=== PATIENT | male | born 1945 | race Caucasian/White ===

== ENCOUNTER 2017-11-12 00:57 | Inpatient (IN) | payer MEDICARE, OTHER ==
[2017-11-12] MEDS: VECURONIUM 100 MG in DEXTROSE 5% 100 ML IV ×3 (01:08→21:28)
[2017-11-12] MEDS: SODIUM CHLORIDE 0.9% 500 ML BAG IV* (01:08)
[2017-11-12 01:19] LABS: ADD MAN DIFF? NO
[2017-11-12 01:22] LABS: WHITE BLOOD COUNT 7.7 10^3/ul (4.8-10.8)
[2017-11-12 01:22] LABS: BASOPHIL # 0.1 10^3/ul (0.0-0.1); BASOPHILS % 0.7 % (0.0-2.0); EOSINOPHILS # 0.3 10^3/ul (0.0-0.5); HEMATOCRIT 33.4 % (42.0-52.0); HEMOGLOBIN 10.6 g/dl (14.0-18.0); LYMPHOCYTES # 2.6 10^3/ul (0.8-2.9); LYMPHOCYTES % 34.3 % (15.0-51.0); MEAN CORPUSCULAR HEMOGLOBIN 34.8 pg (29.0-33.0); MEAN CORPUSCULAR HGB CONC 31.7 g/dl (32.0-37.0); MEAN CORPUSCULAR VOLUME 109.5 fl (82.0-101.0); MEAN PLATELET VOLUME 10.9 fl (7.4-10.4); MONOCYTE # 0.3 10^3/ul (0.3-0.9); MONOCYTES % 3.4 % (0.0-11.0); NEUTROPHIL # 4.2 10^3/ul (1.6-7.5); PLATELET COUNT 196 10^3/UL (140-415); RED BLOOD COUNT 3.05 10^6/ul (4.70-6.10); RED CELL DISTRIBUTION WIDTH 14.2 % (11.5-14.5)
[2017-11-12 01:31] LABS: ADD UMIC YES; UR ASCORBIC ACID NEGATIVE (NEGATIVE); UR BILIRUBIN (Dip) NEGATIVE (NEGATIVE); UR BLOOD (Dip) NEGATIVE (NEGATIVE); UR CLARITY CLOUDY (CLEAR); UR COLOR YELLOW (YELLOW); UR GLUCOSE (Dip) 3+ mg/dL (NEGATIVE); UR KETONES (Dip) NEGATIVE (NEGATIVE); UR LEUKOCYTE ESTERASE (Dip) NEGATIVE Leu/ul (NEGATIVE); UR NITRITE (Dip) NEGATIVE (NEGATIVE); UR RBC 5 /HPF (0-5); UR SPECIFIC GRAVITY (Dip) 1.012 (1.003-1.030); UR TOTAL PROTEIN (Dip) 3+ mg/dl (NEGATIVE); UR UROBILINOGEN (Dip) NEGATIVE (NEGATIVE); UR WBC 7 /HPF (0-5)
[2017-11-12 01:41] LABS: INR 1.18; PROTIME 15.2 Sec (11.9-14.9); PT RATIO 1.2
[2017-11-12] MEDS ORDERED: HEPARIN 1000 UNITS/ML 10 ML INJ (01:41)
[2017-11-12] MEDS ORDERED: IOHEXOL 350MG/ML 50 ML BTL (01:41)
[2017-11-12] MEDS ORDERED: IODIXANOL LOCM 100 ML BTL (01:41)
[2017-11-12] MEDS ORDERED: NITROGLYCERIN (IC) 100 MCG/ML INJ (01:41)
[2017-11-12] MEDS ORDERED: LIDOCAINE 1% (MDV) 20 ML INJ (01:41)
[2017-11-12] MEDS ORDERED: VERAPAMIL 5 MG INJ (01:41)
[2017-11-12 01:42] LABS: AADO2 Arterial 108.3 mmHg (7.0-24.0); Allen Test ACCEPTAB; Arterial Base Excess -11.2 mmol/L (-3.0-3); Arterial Blood Gas Oxygen Sat 99.4 mmHG (95.0-100.0); Arterial COHb 0 % (0.0-3.0); Arterial Fraction of Oxyhgb 99.2 % (93.0-99.0); Arterial HCO3 15.8 mmol/L (22.0-26.0); Arterial MetHb 0.2 % (0.0-1.5); Arterial Total Hemglobin 11.9 g/dl (12.0-18.0); Arterial pCO2 39.7 mmhg (35-45); MODE VENT - AC; PARTIAL THROMBOPLASTIN TIME 32.6 Sec (25.0-35.0); Site Left Radial
[2017-11-12 01:57] LABS: ALANINE AMINOTRANSFERASE 38 IU/L (13-69); ALBUMIN 3.7 g/dl (3.3-4.9); ALKALINE PHOSPHATASE 98 IU/L (42-121); ANION GAP 30 (8-16); ASPARTATE AMINO TRANSFERASE 41 IU/L (15-46); CARBON DIOXIDE 20 mmol/L (21-31); CHLORIDE 97 mmol/L (97-110); GLUCOSE 260 mg/dl (70-220); MAGNESIUM 2.9 mg/dl (1.7-2.5); PHOSPHORUS 12.5 mg/dl (2.5-4.9)
[2017-11-12 01:58] LABS: BLOOD UREA NITROGEN 75 mg/dl (7-20); CALCIUM 7.4 mg/dl (8.4-10.2); CREATININE 6.66 mg/dl (0.61-1.24); SODIUM 142 mmol/L (135-144)
[2017-11-12] MEDS ORDERED: ALBUTEROL HFA 8 GM INHALER INH (02:00)
[2017-11-12] MEDS ORDERED: IPRATROPIUM (HFA) 12.9 GM INHALER INH (02:00)
[2017-11-12 02:07] LABS: HEMOGLOBIN A1C 7.9 % (0-5.9)
[2017-11-12 03:33] LABS: THYROID STIMULATING HORMONE 0.226 MIU/L (0.465-4.680)
[2017-11-12 03:54] LABS: ADD MAN DIFF? NO
[2017-11-12 03:59] LABS: AADO2 Arterial 239.4 mmHg (7.0-24.0); Allen Test ACCEPTAB; Arterial Base Excess -6.6 mmol/L (-3.0-3); Arterial Blood Gas Oxygen Sat 99.3 mmHG (95.0-100.0); Arterial COHb 0.3 % (0.0-3.0); Arterial Fraction of Oxyhgb 98.8 % (93.0-99.0); Arterial HCO3 20.8 mmol/L (22.0-26.0); Arterial MetHb 0.2 % (0.0-1.5); Arterial Total Hemglobin 12.1 g/dl (12.0-18.0); Arterial pCO2 45.1 mmhg (35-45); MODE VENT - AC; Site Left Radial; Temperature 34.8 C
[2017-11-12 04:00] LABS: BASOPHIL # 0.1 10^3/ul (0.0-0.1); BASOPHILS % 0.4 % (0.0-2.0); EOSINOPHILS # 0.2 10^3/ul (0.0-0.5); EOSINOPHILS % 1.7 % (0.0-7.0); HEMATOCRIT 33.7 % (42.0-52.0); LYMPHOCYTES # 1.2 10^3/ul (0.8-2.9); MEAN CORPUSCULAR HEMOGLOBIN 34.2 pg (29.0-33.0); MEAN CORPUSCULAR HGB CONC 32.6 g/dl (32.0-37.0); MEAN CORPUSCULAR VOLUME 104.7 fl (82.0-101.0); MEAN PLATELET VOLUME 10.8 fl (7.4-10.4); MONOCYTE # 0.3 10^3/ul (0.3-0.9); MONOCYTES % 2.3 % (0.0-11.0); NEUTROPHIL # 10.2 10^3/ul (1.6-7.5); PLATELET COUNT 217 10^3/UL (140-415); RED BLOOD COUNT 3.22 10^6/ul (4.70-6.10); RED CELL DISTRIBUTION WIDTH 14.3 % (11.5-14.5)
[2017-11-12 04:00] LABS: WHITE BLOOD COUNT 12.2 10^3/ul (4.8-10.8)
[2017-11-12] MEDS ORDERED: DEXTROSE 50% 50 ML SYRINGE IV ×2 (04:00)
[2017-11-12] MEDS: ACCU-CHEK XX ×20 (04:00→23:50)
[2017-11-12] MEDS: PROPOFOL 100 ML IV ×3 (04:07→17:32)
[2017-11-12 04:16] LABS: ALANINE AMINOTRANSFERASE 50 IU/L (13-69); ALBUMIN 3.7 g/dl (3.3-4.9); ALBUMIN/GLOBULIN RATIO 1.42; ALKALINE PHOSPHATASE 99 IU/L (42-121); ANION GAP 23 (8-16); ASPARTATE AMINO TRANSFERASE 73 IU/L (15-46); BLOOD UREA NITROGEN 79 mg/dl (7-20); CALCIUM 6.9 mg/dl (8.4-10.2); CARBON DIOXIDE 25 mmol/L (21-31); CHLORIDE 99 mmol/L (97-110); CHOL/HDL RATIO 1.7 RATIO; CHOLESTEROL 131 mg/dl (100-200); GLUCOSE 118 mg/dl (70-220); HDL CHOLESTEROL 76 mg/dl (31-75); LDL CHOLESTEROL,CALCULATED 35 mg/dl; MAGNESIUM 2.4 mg/dl (1.7-2.5); PHOSPHORUS 11.3 mg/dl (2.5-4.9); POTASSIUM 5.4 mmol/L (3.5-5.1); SODIUM 142 mmol/L (135-144); TOTAL PROTEIN 6.3 g/dl (6.1-8.1); TRIGLYCERIDES 99 mg/dl (0-149)
[2017-11-12 04:19] LABS: LACTIC ACID 1.7 mmol/L (0.5-2.0)
[2017-11-12] MEDS: SOD CHLORIDE 0.9% 1,000 ML IV (04:19)
[2017-11-12 04:20] LABS: AMYLASE 133 U/L (11-123)
[2017-11-12 04:20] LABS: CREATINE KINASE 450 IU/L (23-200); LIPASE 143 U/L (23-300)
[2017-11-12 04:27] LABS: CK INDEX 4.4
[2017-11-12 04:28] LABS: INR 1.23; PARTIAL THROMBOPLASTIN TIME 29.7 Sec (25.0-35.0); PROTIME 15.7 Sec (11.9-14.9); PT RATIO 1.2
[2017-11-12] MEDS: INSULIN HUMAN REGULAR 100 UNIT in SOD CHLORIDE 0.9% 99 ML IV (05:16)
[2017-11-12 05:33] LABS: THYROID STIMULATING HORMONE 0.267 MIU/L (0.465-4.680)
[2017-11-12 05:49] LABS: D-DIMER > 10000.00 ng/ml (<460)
[2017-11-12] MEDS: PANTOPRAZOLE 40 MG INJ IV (06:08)
[2017-11-12] MEDS: CALCIUM GLUCONATE 10% 1 GM in DEXTROSE 5% 100 ML IVPB (08:00)
[2017-11-12 09:27] LABS: ADD MAN DIFF? NO
[2017-11-12 09:29] LABS: WHITE BLOOD COUNT 8.2 10^3/ul (4.8-10.8)
[2017-11-12 09:29] LABS: BASOPHILS % 0.2 % (0.0-2.0); EOSINOPHILS % 0.4 % (0.0-7.0); HEMOGLOBIN 11.5 g/dl (14.0-18.0); LYMPHOCYTES # 0.6 10^3/ul (0.8-2.9); LYMPHOCYTES % 7.7 % (15.0-51.0); MEAN CORPUSCULAR HEMOGLOBIN 33.9 pg (29.0-33.0); MEAN CORPUSCULAR HGB CONC 32.9 g/dl (32.0-37.0); MEAN CORPUSCULAR VOLUME 103.2 fl (82.0-101.0); MEAN PLATELET VOLUME 10.6 fl (7.4-10.4); MONOCYTE # 0.2 10^3/ul (0.3-0.9); MONOCYTES % 2.9 % (0.0-11.0); NEUTROPHIL # 7.2 10^3/ul (1.6-7.5); NEUTROPHILS % 88.3 % (39.0-77.0); PLATELET COUNT 160 10^3/UL (140-415); RED BLOOD COUNT 3.39 10^6/ul (4.70-6.10); RED CELL DISTRIBUTION WIDTH 14.4 % (11.5-14.5)
[2017-11-12 09:51] LABS: ALANINE AMINOTRANSFERASE 51 IU/L (13-69); ALBUMIN 3.7 g/dl (3.3-4.9); ALBUMIN/GLOBULIN RATIO 1.48; ALKALINE PHOSPHATASE 100 IU/L (42-121); ANION GAP 26 (8-16); ASPARTATE AMINO TRANSFERASE 94 IU/L (15-46); BLOOD UREA NITROGEN 85 mg/dl (7-20); CALCIUM 6.9 mg/dl (8.4-10.2); CARBON DIOXIDE 21 mmol/L (21-31); CHLORIDE 100 mmol/L (97-110); GLUCOSE 142 mg/dl (70-220); POTASSIUM 5.6 mmol/L (3.5-5.1); SODIUM 141 mmol/L (135-144); TOTAL PROTEIN 6.2 g/dl (6.1-8.1)
[2017-11-12 09:52] LABS: MAGNESIUM 2.6 mg/dl (1.7-2.5)
[2017-11-12 10:10] LABS: AMYLASE 146 U/L (11-123)
[2017-11-12 10:10] LABS: CK INDEX 5.9; CREATINE KINASE 781 IU/L (23-200); LIPASE 99 U/L (23-300)
[2017-11-12 10:32] LABS: AADO2 Arterial 167.5 mmHg (7.0-24.0); Arterial Base Excess -6.8 mmol/L (-3.0-3); Arterial Blood Gas Oxygen Sat 98.8 mmHG (95.0-100.0); Arterial COHb 0.4 % (0.0-3.0); Arterial Fraction of Oxyhgb 98.3 % (93.0-99.0); Arterial HCO3 17.6 mmol/L (22.0-26.0); Arterial MetHb 0.1 % (0.0-1.5); Arterial Total Hemglobin 12.8 g/dl (12.0-18.0); Arterial pCO2 27.5 mmhg (35-45); MODE VENT - AC; Site Left Radial; Temperature 33.5 C
[2017-11-12 11:00] LABS: D-DIMER > 10000.00 ng/ml (<460)
[2017-11-12] MEDS ORDERED: MEPERIDINE 25 MG INJ IV ×2 (11:00)
[2017-11-12] MEDS: OCULAR LUBRICANT 3.5 GM OPH OINT BOTH EYES ×2 (13:18→17:14)
[2017-11-12] MEDS: ARTIFICIAL TEARS 15 ML OPH BOTH EYES ×2 (13:18→17:14)
[2017-11-12 13:44] LABS: ADD UMIC YES; UR ASCORBIC ACID NEGATIVE (NEGATIVE); UR BACTERIA FEW /HPF (NONE SEEN); UR BILIRUBIN (Dip) NEGATIVE (NEGATIVE); UR BLOOD (Dip) 3+ mg/dL (NEGATIVE); UR CLARITY CLOUDY (CLEAR); UR COLOR YELLOW (YELLOW); UR GLUCOSE (Dip) 1+ mg/dL (NEGATIVE); UR KETONES (Dip) TRACE mg/dL (NEGATIVE); UR LEUKOCYTE ESTERASE (Dip) 1+ Leu/ul (NEGATIVE); UR NITRITE (Dip) NEGATIVE (NEGATIVE); UR RBC 89 /HPF (0-5); UR SPECIFIC GRAVITY (Dip) 1.026 (1.003-1.030); UR SQUAMOUS EPITHELIAL CELL FEW /HPF (FEW); UR TOTAL PROTEIN (Dip) 3+ mg/dl (NEGATIVE); UR UROBILINOGEN (Dip) NEGATIVE (NEGATIVE); UR WBC 34 /HPF (0-5)
[2017-11-12] MEDS ORDERED: PENDING SANTYL ORDER FOR WOUND CARE XX (14:00)
[2017-11-12 16:19] LABS: ADD MAN DIFF? NO
[2017-11-12 16:25] LABS: WHITE BLOOD COUNT 6.6 10^3/ul (4.8-10.8)
[2017-11-12 16:25] LABS: ABNORMAL IP MESSAGE 1; BASOPHILS % 0.2 % (0.0-2.0); EOSINOPHILS % 0.3 % (0.0-7.0); HEMATOCRIT 36.2 % (42.0-52.0); HEMOGLOBIN 12.1 g/dl (14.0-18.0); LYMPHOCYTES # 0.4 10^3/ul (0.8-2.9); LYMPHOCYTES % 6.3 % (15.0-51.0); MEAN CORPUSCULAR HEMOGLOBIN 34.1 pg (29.0-33.0); MEAN CORPUSCULAR HGB CONC 33.4 g/dl (32.0-37.0); MEAN PLATELET VOLUME 11.1 fl (7.4-10.4); MONOCYTE # 0.4 10^3/ul (0.3-0.9); NEUTROPHIL # 5.7 10^3/ul (1.6-7.5); NEUTROPHILS % 86.7 % (39.0-77.0); PLATELET COUNT 157 10^3/UL (140-415); POSITIVE DIFF @See below; RED BLOOD COUNT 3.55 10^6/ul (4.70-6.10); RED CELL DISTRIBUTION WIDTH 14.2 % (11.5-14.5)
[2017-11-12 16:44] LABS: MAGNESIUM 2.5 mg/dl (1.7-2.5)
[2017-11-12 16:49] LABS: INR 1.13; PROTIME 14.7 Sec (11.9-14.9); PT RATIO 1.1
[2017-11-12 16:50] LABS: PARTIAL THROMBOPLASTIN TIME 31.1 Sec (25.0-35.0)
[2017-11-12 16:55] LABS: ALANINE AMINOTRANSFERASE 54 IU/L (13-69); ALBUMIN 3.5 g/dl (3.3-4.9); ALBUMIN/GLOBULIN RATIO 1.45; ALKALINE PHOSPHATASE 99 IU/L (42-121); ANION GAP 24 (8-16); ASPARTATE AMINO TRANSFERASE 88 IU/L (15-46); BLOOD UREA NITROGEN 87 mg/dl (7-20); CALCIUM 7.2 mg/dl (8.4-10.2); CARBON DIOXIDE 22 mmol/L (21-31); CHLORIDE 99 mmol/L (97-110); CREATININE 6.65 mg/dl (0.61-1.24); GLUCOSE 95 mg/dl (70-220); PHOSPHORUS 8.1 mg/dl (2.5-4.9); POTASSIUM 4.9 mmol/L (3.5-5.1); SODIUM 140 mmol/L (135-144); TOTAL PROTEIN 5.9 g/dl (6.1-8.1)
[2017-11-12 17:00] LABS: CREATINE KINASE 853 IU/L (23-200); LIPASE 65 U/L (23-300)
[2017-11-12 17:00] LABS: AMYLASE 130 U/L (11-123)
[2017-11-12 17:01] LABS: LACTIC ACID 1.2 mmol/L (0.5-2.0)
[2017-11-12] MEDS ORDERED: PROPOFOL 100 ML (17:07)
[2017-11-12] MEDS: MIDAZOLAM (DRIP) 50 mg/50 mL 50 ML IV (17:15)
[2017-11-12 17:18] LABS: D-DIMER 9557.71 ng/ml (<460)
[2017-11-12] MEDS: DEXTROSE 5%-0.9% NACL 1,000 ML IV (18:32)
[2017-11-12 20:02] LABS: AADO2 Arterial 185.1 mmHg (7.0-24.0); Allen Test ACCEPTAB; Arterial Base Excess 3.7 mmol/L (-3.0-3); Arterial COHb 0.6 % (0.0-3.0); Arterial Fraction of Oxyhgb 89.3 % (93.0-99.0); Arterial HCO3 31.1 mmol/L (22.0-26.0); Arterial MetHb 0.2 % (0.0-1.5); Arterial pCO2 48.9 mmhg (35-45); MODE VENT - AC; Site Left Radial
[2017-11-12 21:54] LABS: ADD MAN DIFF? NO
[2017-11-12 21:57] LABS: WHITE BLOOD COUNT 6.1 10^3/ul (4.8-10.8)
[2017-11-12 21:57] LABS: ABNORMAL IP MESSAGE 1; BASOPHILS % 0.3 % (0.0-2.0); EOSINOPHILS % 0.3 % (0.0-7.0); HEMATOCRIT 36.1 % (42.0-52.0); LYMPHOCYTES # 0.5 10^3/ul (0.8-2.9); LYMPHOCYTES % 7.3 % (15.0-51.0); MEAN CORPUSCULAR HEMOGLOBIN 33.4 pg (29.0-33.0); MEAN CORPUSCULAR HGB CONC 33.2 g/dl (32.0-37.0); MEAN CORPUSCULAR VOLUME 100.6 fl (82.0-101.0); MONOCYTE # 0.3 10^3/ul (0.3-0.9); MONOCYTES % 5.1 % (0.0-11.0); NEUTROPHIL # 5.3 10^3/ul (1.6-7.5); NEUTROPHILS % 86.7 % (39.0-77.0); PLATELET COUNT 148 10^3/UL (140-415); POSITIVE DIFF @See below; RED BLOOD COUNT 3.59 10^6/ul (4.70-6.10); RED CELL DISTRIBUTION WIDTH 14.2 % (11.5-14.5)
[2017-11-12 22:02] LABS: AADO2 Arterial 146.6 mmHg (7.0-24.0); Arterial Base Excess -3.7 mmol/L (-3.0-3); Arterial Blood Gas Oxygen Sat 98.8 mmHG (95.0-100.0); Arterial COHb 0.2 % (0.0-3.0); Arterial Fraction of Oxyhgb 98.3 % (93.0-99.0); Arterial HCO3 20.2 mmol/L (22.0-26.0); Arterial MetHb 0.3 % (0.0-1.5); Arterial Total Hemglobin 12.9 g/dl (12.0-18.0); Arterial pCO2 27.7 mmhg (35-45); MODE VENT - AC; Site LB
[2017-11-12 22:13] LABS: MAGNESIUM 2.5 mg/dl (1.7-2.5)
[2017-11-12 22:14] LABS: AMYLASE 95 U/L (11-123)
[2017-11-12 22:14] LABS: LIPASE 51 U/L (23-300)
[2017-11-12 22:15] LABS: PHOSPHORUS 8.2 mg/dl (2.5-4.9)
[2017-11-12 22:15] LABS: ALANINE AMINOTRANSFERASE 50 IU/L (13-69); ALBUMIN 3.3 g/dl (3.3-4.9); ALBUMIN/GLOBULIN RATIO 1.32; ALKALINE PHOSPHATASE 95 IU/L (42-121); ANION GAP 22 (8-16); ASPARTATE AMINO TRANSFERASE 79 IU/L (15-46); BLOOD UREA NITROGEN 89 mg/dl (7-20); CALCIUM 7.2 mg/dl (8.4-10.2); CARBON DIOXIDE 20 mmol/L (21-31); CHLORIDE 100 mmol/L (97-110); CREATININE 6.62 mg/dl (0.61-1.24); GLUCOSE 128 mg/dl (70-220); MAGNESIUM 2.5 mg/dl (1.7-2.5); POTASSIUM 4.3 mmol/L (3.5-5.1); SODIUM 138 mmol/L (135-144); TOTAL PROTEIN 5.8 g/dl (6.1-8.1)
[2017-11-12 22:17] LABS: INR 1.17; PROTIME 15.1 Sec (11.9-14.9); PT RATIO 1.2
[2017-11-12 22:18] LABS: PARTIAL THROMBOPLASTIN TIME 29.7 Sec (25.0-35.0)
[2017-11-13] MEDS: OCULAR LUBRICANT 3.5 GM OPH OINT BOTH EYES ×5 (00:42→23:17)
[2017-11-13] MEDS: ACCU-CHEK XX ×25 (00:42→23:43)
[2017-11-13] MEDS: ARTIFICIAL TEARS 15 ML OPH BOTH EYES ×5 (00:42→23:17)
[2017-11-13] MEDS: CALCIUM GLUCONATE 10% 1 GM in DEXTROSE 5% 100 ML IVPB (01:31)
[2017-11-13 01:51] LABS: INR 1.12; PROTIME 14.6 Sec (11.9-14.9); PT RATIO 1.1
[2017-11-13 01:52] LABS: PARTIAL THROMBOPLASTIN TIME 30.6 Sec (25.0-35.0)
[2017-11-13] MEDS: CEFTRIAXONE 1 GM/50 ML (PMX) 50 ML IVPB (01:54)
[2017-11-13 04:30] LABS: AADO2 Arterial 149.4 mmHg (7.0-24.0); Arterial Base Excess -5.3 mmol/L (-3.0-3); Arterial Blood Gas Oxygen Sat 97.9 mmHG (95.0-100.0); Arterial COHb 0.2 % (0.0-3.0); Arterial Fraction of Oxyhgb 97.4 % (93.0-99.0); Arterial HCO3 18.4 mmol/L (22.0-26.0); Arterial MetHb 0.3 % (0.0-1.5); Arterial Total Hemglobin 13.4 g/dl (12.0-18.0); Arterial pCO2 25.7 mmhg (35-45); MODE VENT - AC; Site LB; Temperature 33.1 C
[2017-11-13 04:50] LABS: ADD MAN DIFF? NO
[2017-11-13 04:53] LABS: WHITE BLOOD COUNT 6.3 10^3/ul (4.8-10.8)
[2017-11-13 04:53] LABS: ABNORMAL IP MESSAGE 1; BASOPHILS % 0.2 % (0.0-2.0); EOSINOPHILS % 0.2 % (0.0-7.0); HEMATOCRIT 36.1 % (42.0-52.0); HEMOGLOBIN 12.2 g/dl (14.0-18.0); LYMPHOCYTES # 0.5 10^3/ul (0.8-2.9); LYMPHOCYTES % 8.4 % (15.0-51.0); MEAN CORPUSCULAR HEMOGLOBIN 33.7 pg (29.0-33.0); MEAN CORPUSCULAR HGB CONC 33.8 g/dl (32.0-37.0); MEAN CORPUSCULAR VOLUME 99.7 fl (82.0-101.0); MEAN PLATELET VOLUME 11.7 fl (7.4-10.4); MONOCYTE # 0.3 10^3/ul (0.3-0.9); MONOCYTES % 4.6 % (0.0-11.0); NEUTROPHIL # 5.4 10^3/ul (1.6-7.5); NEUTROPHILS % 86.3 % (39.0-77.0); PLATELET COUNT 153 10^3/UL (140-415); POSITIVE DIFF @See below; RED BLOOD COUNT 3.62 10^6/ul (4.70-6.10); RED CELL DISTRIBUTION WIDTH 14.5 % (11.5-14.5)
[2017-11-13 05:19] LABS: LACTIC ACID 1.5 mmol/L (0.5-2.0)
[2017-11-13 05:20] LABS: AMYLASE 94 U/L (11-123)
[2017-11-13 05:20] LABS: INR 1.13; LIPASE 37 U/L (23-300); PROTIME 14.7 Sec (11.9-14.9); PT RATIO 1.1
[2017-11-13 05:21] LABS: PARTIAL THROMBOPLASTIN TIME 31.5 Sec (25.0-35.0)
[2017-11-13] MEDS: MIDAZOLAM (DRIP) 50 mg/50 mL 50 ML IV ×2 (05:27→16:39)
[2017-11-13] MEDS: PANTOPRAZOLE 40 MG INJ IV (05:27)
[2017-11-13 05:29] LABS: ALANINE AMINOTRANSFERASE 57 IU/L (13-69); ALKALINE PHOSPHATASE 85 IU/L (42-121); ANION GAP 22 (8-16); ASPARTATE AMINO TRANSFERASE 75 IU/L (15-46); BLOOD UREA NITROGEN 93 mg/dl (7-20); CALCIUM 7.9 mg/dl (8.4-10.2); CARBON DIOXIDE 23 mmol/L (21-31); CHLORIDE 101 mmol/L (97-110); CREATININE 6.82 mg/dl (0.61-1.24); GLUCOSE 126 mg/dl (70-220); MAGNESIUM 2.5 mg/dl (1.7-2.5); PHOSPHORUS 7.8 mg/dl (2.5-4.9); POTASSIUM 4.7 mmol/L (3.5-5.1); SODIUM 141 mmol/L (135-144); TOTAL PROTEIN 5.2 g/dl (6.1-8.1)
[2017-11-13 05:30] LABS: ALBUMIN/GLOBULIN RATIO 1.36
[2017-11-13] MEDS: ACETAMINOPHEN 650MG/20.3ML CUP PO ×4 (06:23→23:44)
[2017-11-13] MEDS: SOD CHLORIDE 0.9% 1,000 ML IV (06:44)
[2017-11-13] MEDS: PROPOFOL 100 ML IV ×2 (08:00→17:31)
[2017-11-13] MEDS: INSULIN HUMAN REGULAR 100 UNIT in SOD CHLORIDE 0.9% 99 ML IV (10:43)
[2017-11-13 11:00] LABS: AADO2 Arterial 145.9 mmHg (7.0-24.0); Allen Test ACCEPTAB; Arterial Base Excess -7.1 mmol/L (-3.0-3); Arterial Blood Gas Oxygen Sat 97.8 mmHG (95.0-100.0); Arterial COHb 0.4 % (0.0-3.0); Arterial Fraction of Oxyhgb 97.1 % (93.0-99.0); Arterial HCO3 17.6 mmol/L (22.0-26.0); Arterial MetHb 0.3 % (0.0-1.5); Arterial Total Hemglobin 13.3 g/dl (12.0-18.0); Arterial pCO2 28.8 mmhg (35-45); MODE VENT - AC; Site Left Radial; Temperature 33.8 C
[2017-11-13 11:36] LABS: ADD MAN DIFF? NO
[2017-11-13 11:40] LABS: WHITE BLOOD COUNT 7.5 10^3/ul (4.8-10.8)
[2017-11-13 11:40] LABS: ABNORMAL IP MESSAGE 1; BASOPHILS % 0.3 % (0.0-2.0); EOSINOPHILS % 0.3 % (0.0-7.0); HEMOGLOBIN 12.3 g/dl (14.0-18.0); LYMPHOCYTES # 0.5 10^3/ul (0.8-2.9); MEAN CORPUSCULAR HEMOGLOBIN 33.4 pg (29.0-33.0); MEAN CORPUSCULAR HGB CONC 33.2 g/dl (32.0-37.0); MEAN CORPUSCULAR VOLUME 100.5 fl (82.0-101.0); MEAN PLATELET VOLUME 11.3 fl (7.4-10.4); MONOCYTE # 0.4 10^3/ul (0.3-0.9); MONOCYTES % 5.6 % (0.0-11.0); NEUTROPHIL # 6.5 10^3/ul (1.6-7.5); NEUTROPHILS % 87.4 % (39.0-77.0); PLATELET COUNT 154 10^3/UL (140-415); POSITIVE DIFF @See below; RED BLOOD COUNT 3.68 10^6/ul (4.70-6.10); RED CELL DISTRIBUTION WIDTH 14.6 % (11.5-14.5)
[2017-11-13 12:04] LABS: ALANINE AMINOTRANSFERASE 54 IU/L (13-69); ALBUMIN 3.2 g/dl (3.3-4.9); ALBUMIN/GLOBULIN RATIO 1.33; ALKALINE PHOSPHATASE 95 IU/L (42-121); ANION GAP 23 (8-16); ASPARTATE AMINO TRANSFERASE 66 IU/L (15-46); BLOOD UREA NITROGEN 89 mg/dl (7-20); CALCIUM 7.6 mg/dl (8.4-10.2); CARBON DIOXIDE 21 mmol/L (21-31); CHLORIDE 103 mmol/L (97-110); CREATININE 7.06 mg/dl (0.61-1.24); GLUCOSE 131 mg/dl (70-220); SODIUM 142 mmol/L (135-144); TOTAL PROTEIN 5.6 g/dl (6.1-8.1)
[2017-11-13 12:05] LABS: LACTIC ACID 1.1 mmol/L (0.5-2.0)
[2017-11-13 12:16] LABS: INR 1.21; PROTIME 15.5 Sec (11.9-14.9); PT RATIO 1.2
[2017-11-13 12:32] LABS: HEPATITIS B SURFACE ANTIGEN NEGATIVE (NEGATIVE)
[2017-11-13 12:36] LABS: D-DIMER 5144.59 ng/ml (<460)
[2017-11-13 12:37] LABS: LIPASE 28 U/L (23-300)
[2017-11-13 12:37] LABS: AMYLASE 79 U/L (11-123)
[2017-11-13 12:38] LABS: PHOSPHORUS 9.1 mg/dl (2.5-4.9)
[2017-11-13] MEDS: DEXTROSE 5%-0.9% NACL 1,000 ML IV (14:58)
[2017-11-13 17:17] LABS: ADD MAN DIFF? NO
[2017-11-13 17:20] LABS: ABNORMAL IP MESSAGE 1; BASOPHILS % 0.2 % (0.0-2.0); EOSINOPHILS % 0.1 % (0.0-7.0); HEMATOCRIT 38.2 % (42.0-52.0); HEMOGLOBIN 12.9 g/dl (14.0-18.0); LYMPHOCYTES # 0.5 10^3/ul (0.8-2.9); LYMPHOCYTES % 5.5 % (15.0-51.0); MEAN CORPUSCULAR HEMOGLOBIN 33.9 pg (29.0-33.0); MEAN CORPUSCULAR HGB CONC 33.8 g/dl (32.0-37.0); MEAN CORPUSCULAR VOLUME 100.5 fl (82.0-101.0); MEAN PLATELET VOLUME 11.6 fl (7.4-10.4); MONOCYTE # 0.4 10^3/ul (0.3-0.9); MONOCYTES % 5.3 % (0.0-11.0); NEUTROPHIL # 7.4 10^3/ul (1.6-7.5); NEUTROPHILS % 88.5 % (39.0-77.0); PLATELET COUNT 167 10^3/UL (140-415); POSITIVE DIFF @See below; RED CELL DISTRIBUTION WIDTH 14.6 % (11.5-14.5)
[2017-11-13 17:20] LABS: WHITE BLOOD COUNT 8.4 10^3/ul (4.8-10.8)
[2017-11-13 17:38] LABS: ALANINE AMINOTRANSFERASE 49 IU/L (13-69); ALBUMIN 3.2 g/dl (3.3-4.9); ALBUMIN/GLOBULIN RATIO 1.23; ALKALINE PHOSPHATASE 100 IU/L (42-121); ANION GAP 23 (8-16); ASPARTATE AMINO TRANSFERASE 57 IU/L (15-46); BLOOD UREA NITROGEN 91 mg/dl (7-20); CALCIUM 7.7 mg/dl (8.4-10.2); CARBON DIOXIDE 21 mmol/L (21-31); CHLORIDE 103 mmol/L (97-110); CREATININE 7.54 mg/dl (0.61-1.24); GLUCOSE 137 mg/dl (70-220); SODIUM 142 mmol/L (135-144); TOTAL PROTEIN 5.8 g/dl (6.1-8.1)
[2017-11-13 17:39] LABS: AMYLASE 69 U/L (11-123); LACTIC ACID 1.4 mmol/L (0.5-2.0); PHOSPHORUS 9.1 mg/dl (2.5-4.9)
[2017-11-13 17:39] LABS: LIPASE 33 U/L (23-300)
[2017-11-13 17:55] LABS: INR 1.27; PROTIME 16.1 Sec (11.9-14.9); PT RATIO 1.3
[2017-11-13 17:56] LABS: PARTIAL THROMBOPLASTIN TIME 37.6 Sec (25.0-35.0)
[2017-11-13 18:05] LABS: D-DIMER 3970.99 ng/ml (<460)
[2017-11-13 18:06] LABS: PTH CALCIUM 7.5 mg/dL (8.6-10.3)
[2017-11-13 22:50] LABS: LIPASE 29 U/L (23-300)
[2017-11-13 22:50] LABS: AMYLASE 70 U/L (11-123)
[2017-11-13] MEDS ORDERED: ALBUMIN HUMAN 25% 100 ML (22:55)
[2017-11-13 23:07] LABS: LACTIC ACID 1.6 mmol/L (0.5-2.0)
[2017-11-13] MEDS: ALBUMIN HUMAN 25% 100 ML IV (23:17)
[2017-11-14] MEDS: ACCU-CHEK XX ×21 (00:27→20:30)
[2017-11-14] MEDS: MIDAZOLAM (DRIP) 50 mg/50 mL 50 ML IV ×4 (00:39→20:22)
[2017-11-14] MEDS: ALBUMIN HUMAN 25% 100 ML IV (01:16)
[2017-11-14] MEDS: CEFTRIAXONE 1 GM/50 ML (PMX) 50 ML IVPB ×2 (01:45→05:44)
[2017-11-14] MEDS: ACETAMINOPHEN 650MG/20.3ML CUP PO ×3 (05:43→17:34)
[2017-11-14] MEDS: PANTOPRAZOLE 40 MG INJ IV (05:43)
[2017-11-14] MEDS: ARTIFICIAL TEARS 15 ML OPH BOTH EYES ×4 (05:43→23:14)
[2017-11-14] MEDS: OCULAR LUBRICANT 3.5 GM OPH OINT BOTH EYES ×4 (05:43→23:15)
[2017-11-14] MEDS: DEXTROSE 5%-0.9% NACL 1,000 ML IV (05:44)
[2017-11-14] MEDS: PROPOFOL 100 ML IV ×2 (06:17→18:52)
[2017-11-14 06:28] LABS: ADD MAN DIFF? NO
[2017-11-14 06:38] LABS: WHITE BLOOD COUNT 8.6 10^3/ul (4.8-10.8)
[2017-11-14 06:38] LABS: ABNORMAL IP MESSAGE 1; BASOPHILS % 0.2 % (0.0-2.0); EOSINOPHILS % 0.2 % (0.0-7.0); HEMATOCRIT 32.6 % (42.0-52.0); HEMOGLOBIN 10.8 g/dl (14.0-18.0); LYMPHOCYTES # 0.6 10^3/ul (0.8-2.9); LYMPHOCYTES % 6.8 % (15.0-51.0); MEAN CORPUSCULAR HEMOGLOBIN 33.6 pg (29.0-33.0); MEAN CORPUSCULAR HGB CONC 33.1 g/dl (32.0-37.0); MEAN CORPUSCULAR VOLUME 101.6 fl (82.0-101.0); MEAN PLATELET VOLUME 11.9 fl (7.4-10.4); MONOCYTE # 0.6 10^3/ul (0.3-0.9); NEUTROPHIL # 7.3 10^3/ul (1.6-7.5); NEUTROPHILS % 85.1 % (39.0-77.0); PLATELET COUNT 146 10^3/UL (140-415); POSITIVE DIFF @See below; RED BLOOD COUNT 3.21 10^6/ul (4.70-6.10)
[2017-11-14 07:03] LABS: ALANINE AMINOTRANSFERASE 39 IU/L (13-69); ALBUMIN 3.5 g/dl (3.3-4.9); ALBUMIN/GLOBULIN RATIO 1.45; ALKALINE PHOSPHATASE 89 IU/L (42-121); ANION GAP 18 (8-16); ASPARTATE AMINO TRANSFERASE 41 IU/L (15-46); BLOOD UREA NITROGEN 49 mg/dl (7-20); CALCIUM 8.3 mg/dl (8.4-10.2); CARBON DIOXIDE 29 mmol/L (21-31); CHLORIDE 102 mmol/L (97-110); CREATININE 4.67 mg/dl (0.61-1.24); GLUCOSE 118 mg/dl (70-220); POTASSIUM 4.2 mmol/L (3.5-5.1); SODIUM 145 mmol/L (135-144); TOTAL PROTEIN 5.9 g/dl (6.1-8.1)
[2017-11-14 07:54] LABS: AADO2 Arterial 142.5 mmHg (7.0-24.0); Allen Test ACCEPTAB; Arterial Blood Gas Oxygen Sat 96.7 mmHG (95.0-100.0); Arterial COHb 0.2 % (0.0-3.0); Arterial Fraction of Oxyhgb 96.3 % (93.0-99.0); Arterial HCO3 25.1 mmol/L (22.0-26.0); Arterial MetHb 0.2 % (0.0-1.5); Arterial Total Hemglobin 11.1 g/dl (12.0-18.0); Arterial pCO2 38.3 mmhg (35-45); MODE VENT - AC; Site Left Radial
[2017-11-14 08:02] LABS: PTH INTACT 1343 pg/mL (14-64)
[2017-11-14] MEDS: METOPROLOL (XL) 25 MG TAB PO (09:00)
[2017-11-14] MEDS: FENTAnyl (DRIP) 1000 mcg/100mL 100 ML IV ×2 (11:31→23:14)
[2017-11-14] MEDS: VALSARTAN 80 MG TAB PO (20:21)
[2017-11-14] MEDS ORDERED: DEXTROSE 50% 50 ML SYRINGE IV ×2 (21:30)
[2017-11-14] MEDS ORDERED: GLUCOSE GEL 15 GRAM TUBE BUCCAL (21:30)
[2017-11-14] MEDS ORDERED: GLUCOSE GEL 15 GRAM TUBE PO ×2 (21:30)
[2017-11-14] MEDS ORDERED: GLUCAGON 1 MG INJ IM (21:30)
[2017-11-15] MEDS: ACETAMINOPHEN 650MG/20.3ML CUP PO ×2 (00:16→16:20)
[2017-11-15] MEDS: INSULIN ASPART [NOVOLOG] 3 ML PEN SC ×6 (00:22→21:01)
[2017-11-15] MEDS: CEFTRIAXONE 1 GM/50 ML (PMX) 50 ML IVPB (01:53)
[2017-11-15] MEDS: ARTIFICIAL TEARS 15 ML OPH BOTH EYES ×3 (05:02→17:24)
[2017-11-15] MEDS: PANTOPRAZOLE 40 MG INJ IV (05:02)
[2017-11-15] MEDS: OCULAR LUBRICANT 3.5 GM OPH OINT BOTH EYES ×3 (05:02→17:24)
[2017-11-15 05:42] LABS: ADD MAN DIFF? NO; BASOPHILS % 0.4 % (0.0-2.0); EOSINOPHILS # 0.1 10^3/ul (0.0-0.5); EOSINOPHILS % 0.5 % (0.0-7.0); HEMATOCRIT 32.4 % (42.0-52.0); HEMOGLOBIN 10.6 g/dl (14.0-18.0); LYMPHOCYTES # 0.7 10^3/ul (0.8-2.9); LYMPHOCYTES % 7.7 % (15.0-51.0); MEAN CORPUSCULAR HEMOGLOBIN 34.2 pg (29.0-33.0); MEAN CORPUSCULAR HGB CONC 32.7 g/dl (32.0-37.0); MEAN CORPUSCULAR VOLUME 104.5 fl (82.0-101.0); MONOCYTE # 0.6 10^3/ul (0.3-0.9); MONOCYTES % 6.8 % (0.0-11.0); NEUTROPHIL # 7.5 10^3/ul (1.6-7.5); NEUTROPHILS % 82.4 % (39.0-77.0); PLATELET COUNT 138 10^3/UL (140-415); POSITIVE DIFF @See below; RED CELL DISTRIBUTION WIDTH 15.1 % (11.5-14.5)
[2017-11-15 05:42] LABS: WHITE BLOOD COUNT 9.1 10^3/ul (4.8-10.8)
[2017-11-15 06:03] LABS: ANION GAP 23 (8-16); BLOOD UREA NITROGEN 61 mg/dl (7-20); CALCIUM 8.5 mg/dl (8.4-10.2); CARBON DIOXIDE 23 mmol/L (21-31); CHLORIDE 102 mmol/L (97-110); CREATININE 6.36 mg/dl (0.61-1.24); GLUCOSE 194 mg/dl (70-220); MAGNESIUM 2.2 mg/dl (1.7-2.5); PHOSPHORUS 8.2 mg/dl (2.5-4.9); POTASSIUM 4.5 mmol/L (3.5-5.1); SODIUM 143 mmol/L (135-144)
[2017-11-15] MEDS: PROPOFOL 100 ML IV ×2 (06:19→17:24)
[2017-11-15] MEDS: METOPROLOL (XL) 25 MG TAB PO (08:57)
[2017-11-15 15:45] LABS: AADO2 Arterial 102.7 mmHg (7.0-24.0); Allen Test ACCEPTAB; Arterial Base Excess 1.5 mmol/L (-3.0-3); Arterial Blood Gas Oxygen Sat 92.1 mmHG (95.0-100.0); Arterial COHb 0.6 % (0.0-3.0); Arterial Fraction of Oxyhgb 91.5 % (93.0-99.0); Arterial HCO3 25.4 mmol/L (22.0-26.0); Arterial MetHb 0.1 % (0.0-1.5); Arterial pCO2 37.8 mmhg (35-45); MODE VENT - AC; Site Left Radial
[2017-11-15] MEDS ORDERED: VANCOMYCIN IV PER PHARMACY XX (19:00)
[2017-11-15] MEDS: VANCOMYCIN 1.75 GM in SOD CHLORIDE 0.9% 500 ML IVPB (21:03)
[2017-11-15] MEDS: VALSARTAN 80 MG TAB PO (21:04)
[2017-11-15] MEDS: PIPER-TAZO 2.25 GM (PMX) 50 ML IVPB (22:14)
[2017-11-16] MEDS: OCULAR LUBRICANT 3.5 GM OPH OINT BOTH EYES ×4 (00:41→17:38)
[2017-11-16] MEDS: ARTIFICIAL TEARS 15 ML OPH BOTH EYES ×4 (00:41→17:38)
[2017-11-16] MEDS: INSULIN ASPART [NOVOLOG] 3 ML PEN SC ×6 (00:44→21:38)
[2017-11-16 04:48] LABS: ADD MAN DIFF? NO
[2017-11-16 04:51] LABS: BASOPHILS % 0.3 % (0.0-2.0); EOSINOPHILS # 0.1 10^3/ul (0.0-0.5); EOSINOPHILS % 1.5 % (0.0-7.0); HEMATOCRIT 29.7 % (42.0-52.0); HEMOGLOBIN 9.6 g/dl (14.0-18.0); LYMPHOCYTES # 0.7 10^3/ul (0.8-2.9); LYMPHOCYTES % 8.7 % (15.0-51.0); MEAN CORPUSCULAR HEMOGLOBIN 33.9 pg (29.0-33.0); MEAN CORPUSCULAR HGB CONC 32.3 g/dl (32.0-37.0); MEAN CORPUSCULAR VOLUME 104.9 fl (82.0-101.0); MEAN PLATELET VOLUME 11.9 fl (7.4-10.4); MONOCYTE # 0.6 10^3/ul (0.3-0.9); MONOCYTES % 7.5 % (0.0-11.0); NEUTROPHIL # 6.1 10^3/ul (1.6-7.5); NEUTROPHILS % 81.6 % (39.0-77.0); PLATELET COUNT 138 10^3/UL (140-415); RED BLOOD COUNT 2.83 10^6/ul (4.70-6.10); RED CELL DISTRIBUTION WIDTH 15.1 % (11.5-14.5)
[2017-11-16 04:51] LABS: WHITE BLOOD COUNT 7.4 10^3/ul (4.8-10.8)
[2017-11-16 05:11] LABS: ANION GAP 16 (8-16); BLOOD UREA NITROGEN 46 mg/dl (7-20); CALCIUM 8.4 mg/dl (8.4-10.2); CARBON DIOXIDE 28 mmol/L (21-31); CHLORIDE 99 mmol/L (97-110); CREATININE 4.92 mg/dl (0.61-1.24); GLUCOSE 250 mg/dl (70-220); MAGNESIUM 2.2 mg/dl (1.7-2.5); PHOSPHORUS 5.7 mg/dl (2.5-4.9); POTASSIUM 4.2 mmol/L (3.5-5.1); SODIUM 139 mmol/L (135-144)
[2017-11-16] MEDS: PIPER-TAZO 2.25 GM (PMX) 50 ML IVPB ×3 (06:20→21:41)
[2017-11-16] MEDS: PANTOPRAZOLE 40 MG INJ IV (06:21)
[2017-11-16] MEDS: PROPOFOL 100 ML IV ×2 (07:00→17:38)
[2017-11-16] MEDS: INSULIN GLARGINE [LANtus] 3 ML PEN SC (12:39)
[2017-11-16] MEDS: ASPIRIN 81 MG TAB NGT (14:50)
[2017-11-16] MEDS: VALSARTAN 80 MG TAB PO (21:36)
[2017-11-17] MEDS: ARTIFICIAL TEARS 15 ML OPH BOTH EYES ×5 (00:06→23:35)
[2017-11-17] MEDS: OCULAR LUBRICANT 3.5 GM OPH OINT BOTH EYES ×5 (00:06→23:35)
[2017-11-17] MEDS: INSULIN ASPART [NOVOLOG] 3 ML PEN SC ×4 (00:14→12:00)
[2017-11-17 05:34] LABS: ADD MAN DIFF? NO
[2017-11-17 05:37] LABS: WHITE BLOOD COUNT 6.9 10^3/ul (4.8-10.8)
[2017-11-17 05:38] LABS: BASOPHILS % 0.6 % (0.0-2.0); EOSINOPHILS # 0.3 10^3/ul (0.0-0.5); EOSINOPHILS % 4.8 % (0.0-7.0); HEMATOCRIT 28.3 % (42.0-52.0); HEMOGLOBIN 9.2 g/dl (14.0-18.0); LYMPHOCYTES # 0.7 10^3/ul (0.8-2.9); LYMPHOCYTES % 9.8 % (15.0-51.0); MEAN CORPUSCULAR HEMOGLOBIN 33.5 pg (29.0-33.0); MEAN CORPUSCULAR HGB CONC 32.5 g/dl (32.0-37.0); MEAN CORPUSCULAR VOLUME 102.9 fl (82.0-101.0); MEAN PLATELET VOLUME 11.7 fl (7.4-10.4); MONOCYTE # 0.6 10^3/ul (0.3-0.9); NEUTROPHIL # 5.2 10^3/ul (1.6-7.5); NEUTROPHILS % 75.4 % (39.0-77.0); PLATELET COUNT 125 10^3/UL (140-415); RED BLOOD COUNT 2.75 10^6/ul (4.70-6.10); RED CELL DISTRIBUTION WIDTH 14.8 % (11.5-14.5)
[2017-11-17] MEDS: PIPER-TAZO 2.25 GM (PMX) 50 ML IVPB ×3 (05:40→21:00)
[2017-11-17] MEDS: PANTOPRAZOLE 40 MG INJ IV (05:40)
[2017-11-17] MEDS: PROPOFOL 100 ML IV (05:50)
[2017-11-17 06:08] LABS: ANION GAP 14 (8-16); BLOOD UREA NITROGEN 65 mg/dl (7-20); CALCIUM 8.4 mg/dl (8.4-10.2); CARBON DIOXIDE 27 mmol/L (21-31); CHLORIDE 100 mmol/L (97-110); CREATININE 6.34 mg/dl (0.61-1.24); GLUCOSE 229 mg/dl (70-220); MAGNESIUM 2.3 mg/dl (1.7-2.5); PHOSPHORUS 5.8 mg/dl (2.5-4.9); POTASSIUM 4.3 mmol/L (3.5-5.1); SODIUM 137 mmol/L (135-144)
[2017-11-17 06:12] LABS: VANCOMYCIN,RANDOM 12.8 ug/ml
[2017-11-17] MEDS: ASPIRIN 81 MG TAB NGT (08:56)
[2017-11-17] MEDS: INSULIN GLARGINE [LANtus] 3 ML PEN SC (08:57)
[2017-11-17] MEDS: HEPARIN 5,000 UNIT/0.5 ML VIAL SC ×2 (12:01→20:58)
[2017-11-17] MEDS: ACCU-CHEK XX ×12 (12:30→23:30)
[2017-11-17] MEDS: INSULIN HUMAN REGULAR 100 UNIT in SOD CHLORIDE 0.9% 99 ML IV (13:26)
[2017-11-17] MEDS: VANCOMYCIN 1.25 GM in SOD CHLORIDE 0.9% 250 ML IVPB (15:41)
[2017-11-17] MEDS: ATORVASTATIN 40 MG TAB NGT (20:58)
[2017-11-17] MEDS: VALSARTAN 80 MG TAB PO (20:59)
[2017-11-18] MEDS: ACCU-CHEK XX ×15 (00:30→14:41)
[2017-11-18 05:17] LABS: WHITE BLOOD COUNT 6.2 10^3/ul (4.8-10.8)
[2017-11-18 05:17] LABS: ADD MAN DIFF? NO; BASOPHILS % 0.5 % (0.0-2.0); EOSINOPHILS # 0.5 10^3/ul (0.0-0.5); EOSINOPHILS % 7.8 % (0.0-7.0); HEMATOCRIT 29.6 % (42.0-52.0); HEMOGLOBIN 9.4 g/dl (14.0-18.0); LYMPHOCYTES # 0.7 10^3/ul (0.8-2.9); LYMPHOCYTES % 11.8 % (15.0-51.0); MEAN CORPUSCULAR HEMOGLOBIN 33.5 pg (29.0-33.0); MEAN CORPUSCULAR HGB CONC 31.8 g/dl (32.0-37.0); MEAN CORPUSCULAR VOLUME 105.3 fl (82.0-101.0); MEAN PLATELET VOLUME 11.4 fl (7.4-10.4); MONOCYTE # 0.7 10^3/ul (0.3-0.9); MONOCYTES % 10.9 % (0.0-11.0); NEUTROPHIL # 4.2 10^3/ul (1.6-7.5); NEUTROPHILS % 68.4 % (39.0-77.0); PLATELET COUNT 127 10^3/UL (140-415); RED BLOOD COUNT 2.81 10^6/ul (4.70-6.10); RED CELL DISTRIBUTION WIDTH 14.6 % (11.5-14.5)
[2017-11-18] MEDS: PIPER-TAZO 2.25 GM (PMX) 50 ML IVPB ×3 (05:28→20:37)
[2017-11-18] MEDS: ARTIFICIAL TEARS 15 ML OPH BOTH EYES ×5 (05:28→23:36)
[2017-11-18] MEDS: OCULAR LUBRICANT 3.5 GM OPH OINT BOTH EYES ×5 (05:28→23:36)
[2017-11-18] MEDS: PANTOPRAZOLE 40 MG INJ IV (05:29)
[2017-11-18 06:22] LABS: ANION GAP 12 (8-16); BLOOD UREA NITROGEN 43 mg/dl (7-20); CALCIUM 8.5 mg/dl (8.4-10.2); CARBON DIOXIDE 29 mmol/L (21-31); CHLORIDE 101 mmol/L (97-110); CREATININE 4.63 mg/dl (0.61-1.24); GLUCOSE 122 mg/dl (70-220); MAGNESIUM 2.2 mg/dl (1.7-2.5); PHOSPHORUS 4.3 mg/dl (2.5-4.9); POTASSIUM 4.1 mmol/L (3.5-5.1); SODIUM 138 mmol/L (135-144)
[2017-11-18 07:17] LABS: AADO2 Arterial 89.6 mmHg (7.0-24.0); Allen Test ACCEPTAB; Arterial Base Excess 4.1 mmol/L (-3.0-3); Arterial Blood Gas Oxygen Sat 95.3 mmHG (95.0-100.0); Arterial COHb 0.4 % (0.0-3.0); Arterial Fraction of Oxyhgb 94.8 % (93.0-99.0); Arterial HCO3 27.8 mmol/L (22.0-26.0); Arterial MetHb 0.1 % (0.0-1.5); Arterial Total Hemglobin 10.2 g/dl (12.0-18.0); Arterial pCO2 38.3 mmhg (35-45); MODE VENT - AC
[2017-11-18] MEDS: ASPIRIN 81 MG TAB NGT (08:31)
[2017-11-18] MEDS: HEPARIN 5,000 UNIT/0.5 ML VIAL SC ×2 (08:33→20:39)
[2017-11-18] MEDS: INSULIN GLARGINE [LANtus] 3 ML PEN SC (17:06)
[2017-11-18] MEDS: INSULIN ASPART [NOVOLOG] 3 ML PEN SC ×2 (17:07→23:38)
[2017-11-18] MEDS: ATORVASTATIN 40 MG TAB NGT (20:36)
[2017-11-18] MEDS: VALSARTAN 80 MG TAB PO (20:37)
[2017-11-19] MEDS ORDERED: ACCU-CHEK XX (02:00)
[2017-11-19 05:13] LABS: ADD MAN DIFF? NO
[2017-11-19 05:35] LABS: WHITE BLOOD COUNT 5.9 10^3/ul (4.8-10.8)
[2017-11-19 05:35] LABS: BASOPHILS % 0.5 % (0.0-2.0); EOSINOPHILS # 0.4 10^3/ul (0.0-0.5); EOSINOPHILS % 7.3 % (0.0-7.0); HEMATOCRIT 29.9 % (42.0-52.0); HEMOGLOBIN 9.8 g/dl (14.0-18.0); LYMPHOCYTES # 0.9 10^3/ul (0.8-2.9); LYMPHOCYTES % 14.9 % (15.0-51.0); MEAN CORPUSCULAR HGB CONC 32.8 g/dl (32.0-37.0); MEAN CORPUSCULAR VOLUME 103.8 fl (82.0-101.0); MEAN PLATELET VOLUME 11.7 fl (7.4-10.4); MONOCYTE # 0.5 10^3/ul (0.3-0.9); MONOCYTES % 8.3 % (0.0-11.0); NEUTROPHILS % 68.2 % (39.0-77.0); PLATELET COUNT 161 10^3/UL (140-415); RED BLOOD COUNT 2.88 10^6/ul (4.70-6.10); RED CELL DISTRIBUTION WIDTH 14.6 % (11.5-14.5)
[2017-11-19 05:38] LABS: ANION GAP 15 (8-16); BLOOD UREA NITROGEN 57 mg/dl (7-20); CALCIUM 8.7 mg/dl (8.4-10.2); CARBON DIOXIDE 29 mmol/L (21-31); CHLORIDE 99 mmol/L (97-110); CREATININE 6.18 mg/dl (0.61-1.24); GLUCOSE 164 mg/dl (70-220); POTASSIUM 4.2 mmol/L (3.5-5.1); SODIUM 139 mmol/L (135-144)
[2017-11-19] MEDS: OCULAR LUBRICANT 3.5 GM OPH OINT BOTH EYES ×3 (05:43→18:55)
[2017-11-19] MEDS: ARTIFICIAL TEARS 15 ML OPH BOTH EYES ×3 (05:43→18:55)
[2017-11-19] MEDS: PANTOPRAZOLE 40 MG INJ IV (05:43)
[2017-11-19] MEDS: PIPER-TAZO 2.25 GM (PMX) 50 ML IVPB ×3 (05:44→21:36)
[2017-11-19] MEDS: INSULIN ASPART [NOVOLOG] 3 ML PEN SC ×3 (05:50→19:04)
[2017-11-19] MEDS: ASPIRIN 81 MG TAB NGT (09:51)
[2017-11-19] MEDS: HEPARIN 5,000 UNIT/0.5 ML VIAL SC ×2 (09:52→20:12)
[2017-11-19] MEDS: SCOPOLAMINE 1.5 MG PATCH TRANSDERM (11:33)
[2017-11-19] MEDS: ATORVASTATIN 40 MG TAB NGT (20:05)
[2017-11-19] MEDS: VALSARTAN 80 MG TAB PO (20:05)
[2017-11-19] MEDS: INSULIN GLARGINE [LANtus] 3 ML PEN SC (20:13)
[2017-11-20] MEDS: OCULAR LUBRICANT 3.5 GM OPH OINT BOTH EYES ×3 (00:43→12:00)
[2017-11-20] MEDS: ARTIFICIAL TEARS 15 ML OPH BOTH EYES ×3 (00:43→12:00)
[2017-11-20] MEDS: INSULIN ASPART [NOVOLOG] 3 ML PEN SC ×6 (00:46→20:33)
[2017-11-20] MEDS: PIPER-TAZO 2.25 GM (PMX) 50 ML IVPB ×3 (05:14→21:23)
[2017-11-20] MEDS: PANTOPRAZOLE 40 MG INJ IV (05:14)
[2017-11-20 06:27] LABS: WHITE BLOOD COUNT 7.3 10^3/ul (4.8-10.8)
[2017-11-20 06:27] LABS: ADD MAN DIFF? NO; BASOPHILS % 0.5 % (0.0-2.0); EOSINOPHILS # 0.3 10^3/ul (0.0-0.5); EOSINOPHILS % 4.4 % (0.0-7.0); HEMOGLOBIN 10.4 g/dl (14.0-18.0); LYMPHOCYTES # 1.1 10^3/ul (0.8-2.9); LYMPHOCYTES % 14.6 % (15.0-51.0); MEAN CORPUSCULAR HEMOGLOBIN 34.1 pg (29.0-33.0); MEAN CORPUSCULAR HGB CONC 32.5 g/dl (32.0-37.0); MEAN CORPUSCULAR VOLUME 104.9 fl (82.0-101.0); MEAN PLATELET VOLUME 11.5 fl (7.4-10.4); MONOCYTE # 0.6 10^3/ul (0.3-0.9); MONOCYTES % 7.8 % (0.0-11.0); NEUTROPHIL # 5.2 10^3/ul (1.6-7.5); NEUTROPHILS % 71.6 % (39.0-77.0); PLATELET COUNT 203 10^3/UL (140-415); RED BLOOD COUNT 3.05 10^6/ul (4.70-6.10); RED CELL DISTRIBUTION WIDTH 14.4 % (11.5-14.5)
[2017-11-20 06:52] LABS: ANION GAP 12 (8-16); BLOOD UREA NITROGEN 38 mg/dl (7-20); CALCIUM 8.9 mg/dl (8.4-10.2); CARBON DIOXIDE 31 mmol/L (21-31); CHLORIDE 100 mmol/L (97-110); CREATININE 4.81 mg/dl (0.61-1.24); GLUCOSE 216 mg/dl (70-220); MAGNESIUM 2.3 mg/dl (1.7-2.5); PHOSPHORUS 4.8 mg/dl (2.5-4.9); POTASSIUM 4.2 mmol/L (3.5-5.1); SODIUM 139 mmol/L (135-144)
[2017-11-20 07:05] LABS: VANCOMYCIN,RANDOM 13.1 ug/ml
[2017-11-20 08:55] LABS: AADO2 Arterial 89.4 mmHg (7.0-24.0); Allen Test ACCEPTAB; Arterial Base Excess 4.5 mmol/L (-3.0-3); Arterial Blood Gas Oxygen Sat 95.9 mmHG (95.0-100.0); Arterial COHb 0.5 % (0.0-3.0); Arterial Fraction of Oxyhgb 95.3 % (93.0-99.0); Arterial MetHb 0.1 % (0.0-1.5); Arterial Total Hemglobin 10.7 g/dl (12.0-18.0); Arterial pCO2 37.4 mmhg (35-45); MODE VENT - AC; Site Right Radial
[2017-11-20] MEDS: ASPIRIN 81 MG TAB NGT (09:51)
[2017-11-20] MEDS: HEPARIN 5,000 UNIT/0.5 ML VIAL SC ×2 (09:58→20:32)
[2017-11-20] MEDS: VANCOMYCIN 1.25 GM in SOD CHLORIDE 0.9% 250 ML IVPB (16:15)
[2017-11-20] MEDS: VALSARTAN 80 MG TAB PO (20:28)
[2017-11-20] MEDS: ATORVASTATIN 40 MG TAB NGT (20:28)
[2017-11-20] MEDS: INSULIN GLARGINE [LANtus] 3 ML PEN SC (20:33)
[2017-11-21] MEDS: INSULIN ASPART [NOVOLOG] 3 ML PEN SC ×3 (00:26→09:00)
[2017-11-21] MEDS: PIPER-TAZO 2.25 GM (PMX) 50 ML IVPB (05:03)
[2017-11-21] MEDS: PANTOPRAZOLE 40 MG INJ IV (05:03)
[2017-11-21 05:18] LABS: ADD MAN DIFF? NO
[2017-11-21 05:26] LABS: WHITE BLOOD COUNT 7.4 10^3/ul (4.8-10.8)
[2017-11-21 05:26] LABS: BASOPHILS % 0.4 % (0.0-2.0); EOSINOPHILS # 0.4 10^3/ul (0.0-0.5); EOSINOPHILS % 4.9 % (0.0-7.0); HEMATOCRIT 28.3 % (42.0-52.0); HEMOGLOBIN 9.3 g/dl (14.0-18.0); LYMPHOCYTES # 1.1 10^3/ul (0.8-2.9); LYMPHOCYTES % 14.2 % (15.0-51.0); MEAN CORPUSCULAR HEMOGLOBIN 33.6 pg (29.0-33.0); MEAN CORPUSCULAR HGB CONC 32.9 g/dl (32.0-37.0); MEAN CORPUSCULAR VOLUME 102.2 fl (82.0-101.0); MEAN PLATELET VOLUME 11.4 fl (7.4-10.4); MONOCYTE # 0.5 10^3/ul (0.3-0.9); NEUTROPHIL # 5.4 10^3/ul (1.6-7.5); NEUTROPHILS % 72.7 % (39.0-77.0); PLATELET COUNT 224 10^3/UL (140-415); RED BLOOD COUNT 2.77 10^6/ul (4.70-6.10); RED CELL DISTRIBUTION WIDTH 14.4 % (11.5-14.5)
[2017-11-21 05:41] LABS: ANION GAP 13 (8-16); BLOOD UREA NITROGEN 49 mg/dl (7-20); CALCIUM 8.9 mg/dl (8.4-10.2); CARBON DIOXIDE 30 mmol/L (21-31); CHLORIDE 100 mmol/L (97-110); CREATININE 6.36 mg/dl (0.61-1.24); GLUCOSE 163 mg/dl (70-220); MAGNESIUM 2.3 mg/dl (1.7-2.5); PHOSPHORUS 5.3 mg/dl (2.5-4.9); POTASSIUM 3.8 mmol/L (3.5-5.1); SODIUM 139 mmol/L (135-144)
[2017-11-21] MEDS: ASPIRIN 81 MG TAB NGT (09:00)
[2017-11-21] MEDS: HEPARIN 5,000 UNIT/0.5 ML VIAL SC (09:00)
[2017-11-21] MEDS: LORAZEPAM 2 MG INJ IV (10:48)
[2017-11-21] MEDS: morphine 10 MG INJ IV (10:49)
[2017-11-21] MEDS ORDERED: DIMETHICONE STICK TOP (11:00)
[2017-11-21] MEDS ORDERED: LORAZEPAM 2 MG INJ IV (11:00)
[2017-11-21] MEDS ORDERED: ARTIFICIAL TEARS 15 ML OPH BOTH EYES (11:00)
[2017-11-21] MEDS ORDERED: ATROPINE 1% 5 ML OPH SL (11:00)
[2017-11-21] MEDS ORDERED: ONDANSETRON 4 MG INJ IV (11:00)
[2017-11-21] MEDS: morphine (DRIP) 100 MG/100 ML 100 ML IV (11:10)
[2017-11-22] MEDS ORDERED: SCOPOLAMINE 1.5 MG PATCH TRANSDERM (12:00)
== END 2017-11-21 20:40 | disposition expired | DRG 286 ==
LOC: E/R 00:57 → REC 01:43 → ICU 03:12 → MS1 11-21 14:43
PROC: 4A023N7 Measurement of Cardiac Sampling and Pressure, Left Heart, Percutaneous Approach (ICD-10-PCS; principal; 2017-11-12 01:00)
PROC: B211YZZ Fluoroscopy of Multiple Coronary Arteries using Other Contrast (ICD-10-PCS; 2017-11-12 01:00)
PROC: B213YZZ Fluoroscopy of Multiple Coronary Artery Bypass Grafts using Other Contrast (ICD-10-PCS; 2017-11-12 01:00)
PROC: B310YZZ Fluoroscopy of Thoracic Aorta using Other Contrast (ICD-10-PCS; 2017-11-12 01:00)
PROC: B215YZZ Fluoroscopy of Left Heart using Other Contrast (ICD-10-PCS; 2017-11-12 01:00)
PROC: 5A1955Z Respiratory Ventilation, Greater than 96 Consecutive Hours (ICD-10-PCS; 2017-11-12 01:44)
PROC: 5A1D70Z Performance of Urinary Filtration, Intermittent, Less than 6 Hours Per Day (ICD-10-PCS; 2017-11-12 01:44)
PROC: 5A1D70Z Performance of Urinary Filtration, Intermittent, Less than 6 Hours Per Day (ICD-10-PCS; 2017-11-12 01:44)
PROC: 5A1D70Z Performance of Urinary Filtration, Intermittent, Less than 6 Hours Per Day (ICD-10-PCS; 2017-11-12 01:44)
PROC: 5A1D70Z Performance of Urinary Filtration, Intermittent, Less than 6 Hours Per Day (ICD-10-PCS; 2017-11-12 01:44)
PROC: 5A1D70Z Performance of Urinary Filtration, Intermittent, Less than 6 Hours Per Day (ICD-10-PCS; 2017-11-12 01:44)
DX: I46.9 Cardiac arrest, cause unspecified (principal); N18.6 End stage renal disease; J96.00 Acute respiratory failure, unspecified whether with hypoxia or hypercapnia; G92 Toxic encephalopathy; G93.1 Anoxic brain damage, not elsewhere classified; I42.9 Cardiomyopathy, unspecified; E87.0 Hyperosmolality and hypernatremia; I13.2 Hypertensive heart and chronic kidney disease with heart failure and with stage 5 chronic kidney disease, or end stage renal disease; I50.22 Chronic systolic (congestive) heart failure; Z99.11 Dependence on respirator [ventilator] status; E11.65 Type 2 diabetes mellitus with hyperglycemia; E11.22 Type 2 diabetes mellitus with diabetic chronic kidney disease; E87.5 Hyperkalemia; E83.51 Hypocalcemia; Z93.1 Gastrostomy status; D63.1 Anemia in chronic kidney disease; I48.91 Unspecified atrial fibrillation; I25.10 Atherosclerotic heart disease of native coronary artery without angina pectoris; Z79.4 Long term (current) use of insulin; Z79.82 Long term (current) use of aspirin; Z99.2 Dependence on renal dialysis; Z95.1 Presence of aortocoronary bypass graft
CPT/HCPCS: 36415; 36600; 70450; 71045; 80048; 80053; 80061; 80202; 81001; 82150; 82306; 82550; 82553; 82652; 82803; 82962; 83036; 83605; 83690; 83735; 83970; 84100; 84443; 84484; 85025; 85378; 85384; 85610; 85730; 87040; 87081; 87086; 87340; 89220; 90935; 93005; 93306; 93459; 94002; 94003; 94770; 94799; 95819; 99291-25